=== PATIENT | male | born 1930 | race Caucasian/White ===

== ENCOUNTER 2016-07-24 04:37 | Inpatient (IN) | payer MEDICARE, OTHER ==
[~2016-07-24 04:37] MED LIST: ALPHAGAN P10 ML OP; ASPIR 8181 M1 PO; AZOPT 1% OP; CELEBREX100 M1 PO; CHLORDIAZEPOXID10 M1 PO; COUMADIN4 M1 PO; COUMADIN4 MG PO; DIGOXIN125 MCG PO; DIOVAN HCT 1601 EACH PO; FINASTERIDE1 M1 PO; FLOMAX0.4 MG PO; LEVOTHYROXINE100 MC1 PO; LEXAPRO5 M1 PO; LOPRESSOR50 M1 PO; LUMIGAN2.5 M2 OP; NEXIUM40 M1 PO; POTASSIUM CHLO10 ME1 PO; PULMICORT180 PUFF/I INH; SEREVENT DISKU50 MCG INH; SIMBRINZA LEFT EYE; TAMIFLU75 MG/CAP NG; [UNRECOGNIZED DRUG - OTHER] OP
[2016-07-24 05:49] LABS: BASO % 0.2 % (0-2); EOS % 1.6 % (0-7); EOSINOPHIL ABSOLUTE COUNT 0.1 tho/cmm (0.0-0.7); HCT-HEMATOCRIT 37.5 % (36.0-53.5); HGB-HEMOGLOBIN 12.4 gm/dl (13.5-17.0); LYMPH % 17.8 % (20-45); MCH (MEAN CORPUSCULAR HGB) 30.8 pg (28.0-32.0); MCHC MEAN CORPUSCULAR HGB CONC 33.1 % (32.0-36.0); MCV (MEAN CELL VOLUME) 93.3 fl (82.0-96.0); MEAN PLATELET VOLUME 9.5 cmc (9.4-12.4); MONO % 13.9 % (0-12); MONOCYTE ABSOLUTE COUNT 0.8 tho/cmm (0.0-1.2); NEUTROPHIL ABSOLUTE COUNT 3.8 tho/cmm (1.6-8.0); NEUTROPHIL-AUTOMATED 3.8 tho/cmm (1.6-8.0); NEUTROPHILS % 66.5 % (40-80); PLATELET COUNT 121 tho/cmm (150-450); RED BLOOD COUNT 4.02 mil/cmm (4.40-5.70); RED CELL DISTRIBUTION WIDTH 14.2 % (12.4-16.4); WHITE BLOOD COUNT 5.7 tho/cmm (4.0-10.0)
[2016-07-24 06:13] LABS: ALBUMIN 3.3 g/dl (3.5-5.0); ALKALINE PHOSPHATASE 75 U/L (33-138); ALT/SGPT 21 U/L (12-78); ANION GAP 14 mmol/L (0-20); AST/SGOT 17 U/L (10-40); BILIRUBIN,TOTAL 0.7 mg/dl (0.0-1.5); BLOOD UREA NITROGEN 19 mg/dl (6-24); C-REACTIVE PROTEIN 0.9 mg/dl (0-0.9); CALCIUM 8.3 mg/dl (8.5-10.5); CARBON DIOXIDE-VENOUS 25 mmol/L (22-32); CHLORIDE 108 mmol/l (96-110); GLUCOSE 127 mg/dL (70-110); POTASSIUM 3.7 mmol/L (3.7-5.1); SODIUM 143 mmol/L (135-145); eGFR VALUE FOR BLACK >90 mL/Min
[2016-07-24 07:03] LABS: INR 1.2 INR (0.9-1.1); PROTHROMBIN TIME 14.5 SECONDS (9.0-13.6)
[2016-07-24 07:39] LABS: PROCALCITONIN <0.05 ng/ml (0.05-0.09)
[2016-07-24] MEDS ORDERED: TORSEMIDE10 M3 PO (10:27)
[2016-07-24] MEDS ORDERED: OMNIPRED10 M1 (10:28)
[2016-07-24 12:50] LABS: URINE APPEARANCE CLOUDY; URINE BILIRUBIN NEGATIVE (NEG); URINE BLOOD SMALL (NEG); URINE COLOR YELLOW; URINE GLUCOSE (UA) NEGATIVE (NEG); URINE KETONE NEGATIVE (NEG); URINE LEUKOCYTE ESTERASE NEGATIVE (NEG); URINE NITRITE NEGATIVE (NEG); URINE PROTEIN SMALL (NEG); URINE SPECIFIC GRAVITY 1.015 (1.003-1.030)
[2016-07-24 12:55] LABS: URINE AMORPHOUS 3+
[2016-07-24 12:58] LABS: URINE MUCUS 1+
[2016-07-24 12:59] LABS: URINE BACTERIA 1+; URINE WBC 0-3 /[HPF] (0-5)
[2016-07-25 06:15] LABS: INR 1.2 INR (0.9-1.1); PROTHROMBIN TIME 13.6 SECONDS (9.0-13.6)
[2016-07-25 06:16] LABS: BASO % 0.3 % (0-2); EOS % 4.1 % (0-7); EOSINOPHIL ABSOLUTE COUNT 0.1 tho/cmm (0.0-0.7); HCT-HEMATOCRIT 34.3 % (36.0-53.5); HGB-HEMOGLOBIN 11.4 gm/dl (13.5-17.0); IMMATURE GRANULOCYTES ABSOLUTE 0.01 tho/cmm (0-0.03); IMMATURE GRANULOCYTES PERCENT 0.3 % (0-0.3); MCH (MEAN CORPUSCULAR HGB) 30.8 pg (28.0-32.0); MCHC MEAN CORPUSCULAR HGB CONC 33.2 % (32.0-36.0); MCV (MEAN CELL VOLUME) 92.7 fl (82.0-96.0); MEAN PLATELET VOLUME 9.1 cmc (9.4-12.4); MONO % 11.5 % (0-12); MONOCYTE ABSOLUTE COUNT 0.4 tho/cmm (0.0-1.2); NEUTROPHIL ABSOLUTE COUNT 1.9 tho/cmm (1.6-8.0); NEUTROPHIL-AUTOMATED 1.9 tho/cmm (1.6-8.0); NEUTROPHILS % 55.8 % (40-80); PLATELET COUNT 95 tho/cmm (150-450); RED CELL DISTRIBUTION WIDTH 14.3 % (12.4-16.4); WHITE BLOOD COUNT 3.4 tho/cmm (4.0-10.0)
[2016-07-25 06:17] LABS: ANION GAP 11 mmol/L (0-20); BLOOD UREA NITROGEN 14 mg/dl (6-24); CALCIUM 8.1 mg/dl (8.5-10.5); CARBON DIOXIDE-VENOUS 27 mmol/L (22-32); CHLORIDE 111 mmol/l (96-110); CREATININE 0.66 mg/dl (0.60-1.30); GLUCOSE 108 mg/dL (70-110); POTASSIUM 3.7 mmol/L (3.7-5.1); SODIUM 145 mmol/L (135-145); eGFR VALUE FOR BLACK >90 mL/Min
[2016-07-25] MEDS ORDERED: KEFLEX500 M4 PO (16:42)
== END 2016-07-25 17:12 | DRG 603 ==
LOC: EDMED 04:37 → 5EB 07:33
PROVIDERS: Emergency Medicine Emergency Medical Services; Registered Nurse; ADMIT Internal Medicine
DX: L03.114 Cellulitis of left upper limb (principal); D69.6 Thrombocytopenia, unspecified; C61 Malignant neoplasm of prostate; I10 Essential (primary) hypertension; I25.10 Atherosclerotic heart disease of native coronary artery without angina pectoris; I48.2 Chronic atrial fibrillation; M19.032 Primary osteoarthritis, left wrist; Z96.642 Presence of left artificial hip joint; E03.9 Hypothyroidism, unspecified; J45.909 Unspecified asthma, uncomplicated; F41.9 Anxiety disorder, unspecified; N40.0 Benign prostatic hyperplasia without lower urinary tract symptoms; M19.90 Unspecified osteoarthritis, unspecified site; E78.5 Hyperlipidemia, unspecified; I48.91 Unspecified atrial fibrillation; M10.9 Gout, unspecified; W19.XXXA Unspecified fall, initial encounter; Z95.1 Presence of aortocoronary bypass graft; Z79.82 Long term (current) use of aspirin; Z79.01 Long term (current) use of anticoagulants; S60.212A Contusion of left wrist, initial encounter
CPT/HCPCS: G8978-GO-CJ; G8978-GP-CK; G8979-GO-CI; G8979-GP-CJ; G8980-GO-CJ; J0690; J2270; J7030